=== PATIENT | female | born 1995 | race Two or more races ===

== ENCOUNTER 2019-08-22 17:41 | Emergency (ER) | payer MEDICAID ==
[~2019-08-22] VITALS: Ht 160 cm; Wt 113.4 kg
[2019-08-22 18:08] VITALS: BP 142/88
== END 2019-08-22 20:49 | disposition left against medical advice (07) ==
LOC: ER 17:41
DX: J02.9 Acute pharyngitis, unspecified (principal); I10 Essential (primary) hypertension

== ENCOUNTER 2019-11-04 07:34 | Emergency (ER) | payer MEDICAID ==
[~2019-11-04] VITALS: Ht 147.3 cm; Wt 124.7 kg
[2019-11-04 07:47] VITALS: BP 116/86
== END 2019-11-04 07:49 | disposition left against medical advice (07) ==
LOC: ER 07:34 → EDBD 07:34 → ER 07:49
DX: F10.120 Alcohol abuse with intoxication, uncomplicated (principal); Y90.9 Presence of alcohol in blood, level not specified; Z53.21 Procedure and treatment not carried out due to patient leaving prior to being seen by health care provider